=== PATIENT | female | born 1945 | race Hispanic/Latino ===

== ENCOUNTER 2017-12-26 17:05 | Emergency (ER) | payer MEDICARE ==
[~2017-12-26] VITALS: Ht 149.9 cm; Wt 56.2 kg
[~2017-12-26 17:05] MED LIST: ACTOS15 MG PO; ASPIR 8181 MG PO; CELEXA20 MG PO; ENALAPRIL PO; GLIMEPIRIDE2 MG PO; HUMALOG100 UNITS/ SQ; HUMULIN R100 UNIT/2; LEVEMIR100 UNIT/1 SQ; LEVOTHYROXINE25 MCG PO; LOVASTATIN PO; VITAMIN D-32000 UNIT PO
[2017-12-26] MEDS ORDERED: NAPROXEN250 MG PO (17:18)
[2017-12-26] MEDS ORDERED: GLIMEPIRIDE2 MG PO (17:18)
[2017-12-26] MEDS ORDERED: POTASSIUM CHLO20 ME1 PO (17:18)
[2017-12-26] MEDS ORDERED: FERROUS SULFAT325 MG PO (17:18)
[2017-12-26] MEDS ORDERED: MECLIZINE HCL12.5 MG PO (17:18)
[2017-12-26] MEDS ORDERED: DICLOFENAC SODI75 MG PO (17:18)
[2017-12-26] MEDS ORDERED: ASPIRIN 81 MG CHEW TAB PO ONE (17:30)
[2017-12-26 17:36] LABS: BASOPHILS % 0.9 % (0.0-1.0); EOSINOPHILS # (AUTO) 0.1 (0.0-0.4); EOSINOPHILS % 2.7 % (0.0-6.0); HEMATOCRIT 29.9 % (34.2-44.1); HEMOGLOBIN 9.7 g/dL (12.0-16.0); LYMPHOCYTES % 30.9 % (18.0-39.1); MEAN CORPUSCULAR HEMOGLOBIN 28.9 pg (28-32); MEAN CORPUSCULAR HGB CONC 32.4 g/dL (31-35); MONOCYTES # (AUTO) 0.4 (0.2-0.8); MONOCYTES % 10.8 % (4.4-11.3); NEUTROPHILS # (AUTO) 1.8 (2.1-6.9); NEUTROPHILS % 54.4 % (38.7-80.0); PLATELET COUNT 179 x10e3/uL (140-360); RED BLOOD COUNT 3.36 x10e6/uL (3.6-5.1); RED CELL DISTRIBUTION WIDTH 12.7 % (11.7-14.4)
--- NOTE | 2017-12-26 17:40 | Diagnostic Imaging Report ---
PROCEDURE: A single AP view of the chest. COMPARISON: 05/15/14 INDICATIONS: DIABETIC CRISIS FINDINGS: Lines/tubes: None. Lungs: The lungs are well inflated. No focal consolidation. Pleura: There is no pleural effusion or pneumothorax. Heart and mediastinum: The heart and the mediastinum are unremarkable. Bones: No acute bony abnormality. Again seen left humeral head anchor screw. IMPRESSION: 1. No acute cardiopulmonary disease. Dictated by: Rivera Hester M.D. on 12/26/2017 at 17:45 Electronically approved by: Rivera Hester M.D. on 12/26/2017 at 17:45
[2017-12-26 17:57] LABS: ALBUMIN 3.8 g/dL (3.5-5.0); ALBUMIN/GLOBULIN RATIO 1.1 (0.8-2.0); ANION GAP 14.3 mmol/L (8-16); CALCIUM 9.3 mg/dL (8.4-10.2); CREATININE, SERUM 1.16 mg/dL (0.57-1.11); POTASSIUM 4.3 mmol/L (3.5-5.1)
[2017-12-26 18:03] LABS: CREATINE KINASE MB 2.6 ng/mL (0-5.0)
[2017-12-26 18:54] LABS: BILIRUBIN,URINE NEGATIVE (NEGATIVE); CLARITY,URINE CLEAR (CLEAR); COLOR,URINE YELLOW (YELLOW); KETONES,URINE NEGATIVE (NEGATIVE); LEUKOCYTE ESTERASE ,URINE NEGATIVE (NEGATIVE); NITRITE,URINE NEGATIVE (NEGATIVE); PROTEIN,URINE DIPSTICK TRACE (NEGATIVE); URINE UROBILINOGEN 0.2 mg/dL (0.2 - 1)
[2017-12-26 18:58] LABS: EPITHELIAL CELLS,URINE FEW /LPF; MUCUS,URINE RARE (RARE); WBC,URINE (MAN) 0-5 /HPF (0-5)
== END 2017-12-26 20:50 | disposition home or self-care (01) ==
LOC: ER 17:05
DX: E11.649 Type 2 diabetes mellitus with hypoglycemia without coma (principal); I10 Essential (primary) hypertension
CPT/HCPCS: 36415; 71045; 80053; 81001; 82550; 82553; 82948; 83605; 84484; 85025; 93005; 99284

== ENCOUNTER 2018-08-30 14:36 | Inpatient (IN) | payer MEDICAID, MEDICARE ==
[~2018-08-30] VITALS: Ht 149.9 cm; Wt 63.5 kg
[~2018-08-30 14:36] MED LIST changes: +DICLOFENAC SODI75 MG PO; +FERROUS SULFAT325 MG PO; +MECLIZINE HCL12.5 MG PO; +NAPROXEN250 MG PO; +POTASSIUM CHLO20 ME1 PO
--- OUTSIDE RECORDS SUMMARY | 2018-08-30 14:39 | XMS REPORT ---
[facility] Address Unknown Phone Unavailable Care Team Providers Care Portfolio Administrator Name Role Phone Edy PRYOR Unavailable Unavailable Payers Payer Name Policy Type Policy Number Effective Date Expiration Date Problems This patient has no known problems. Allergies, Adverse Reactions, Alerts Allergy Name Allergy Type Status Severity Reaction(s) Onset Date Inactive Date Treating Clinician Comments omeprazole DA Active [place] 2017-09-07 00:00:00 tramadol DA Active [place] 2017-09-07 00:00:00 Medications This patient has no known medications. Results Test Description Test Time Test Comments Text Results Atomic Results Result Comments GLUBED 2018-08-27 16:20:00 GLUBED (test code=GLUBED) 145 mg/dL 74-106 Performed by certified fixing machine operator at [facility] [id number] 13:07:00* Test Item Value Reference Range Comments GLUBED (test code=GLUBED) 141 mg/dL 74-106 Performed by certified fixing machine operator at [facility] [id number] 10:43:00* Test Item Value Reference Range Comments GLUBED (test code=GLUBED) 133 mg/dL 74-106 Performed by certified fixing machine operator at [facility] [id number] 07:53:00* Test Item Value Reference Range Comments GLUBED (test code=GLUBED) 239 mg/dL 74-106 Performed by certified fixing machine operator at [facility] BASIC METABOLIC [id number] 04:55:00* Test Item Value Reference Range Comments SODIUM (test code=NA) 140 mmol/L 136-145 POTASSIUM (test code=K) 4.6 mmol/L 3.5-5.1 CHLORIDE (test code=CL) 104.0 mmol/L 98-107 CARBON DIOXIDE (test code=CO2) 28.0 mmol/L 21-32 ANION GAP (test code=GAP) 12.6 10-20 GLUCOSE (test code=GLU) 328 mg/dL 74-106 BLOOD UREA NITROGEN (test code=BUN) 26 mg/dL 7-18 GLOMERULAR FILTRATION RATE (test code=GFR) 48 mL/min >=60 Estimated GFR by using Modified MDRD formula.Chronic kidney disease is defined as either kidney damageor GFR <60 mL/min/1.73 m2 for >3 months. CREATININE (test code=CREAT) 1.10 mg/dL 0.55-1.02 Note change in reference range due to change in reagent. BUN/CREATININE RATIO (test code=BUN/CREA) 23.6 10-20 CALCIUM (test code=CA) 8.4 mg/dL 8.5-10.1 THYROID PROFILE [id number] 02:21:00* Test Item Value Reference Range Comments T3 UPTAKE (test code=T3UP) 36.0 % 30.0-40.0 T4 (THYROXINE) (test code=T4) 8.6 ug/dL 4.5-13.9 T7 (FREE THYROXINE INDEX) (test code=T7) 3.09 FTI 1.3-5.1 THYROID STIMULATING HORMONE (test code=TSH) 1.350 uIU/mL 0.36-3.74 TSH REFERENCE RANGES: EUTHYROID: 0.35 - 4.3 mIU/mL HYPO : > 5.5 mIU/mL HYPER : < 0.35 mIU/mL [id number] 02:15:00* Test Item Value Reference Range Comments GLYCOSYLATED HEMOGLOBIN (HA1C) (test code=GLYHGB) 10.5 % HbA1 4.8-6.0 ESTIMATED AVERAGE GLUCOSE (test code=EAG) 255 MG/DL [id number] 02:05:00* Test Item Value Reference Range Comments TROPONIN-I (test code=TROPI) 0.139 ng/mL 0-0.045 COMMENTS TO HEALTH PROMOTION EDUCATOR: COLLECT 3 HOURS AFTER PREVIOUS SAMPLECBC W/AUTO [id number] 01:44:00* Test Item Value Reference Range Comments WHITE BLOOD CELL (test code=WBC) 4.2 K/mm3 4.5-12.5 RED BLOOD CELL (test code=RBC) 3.27 mill/mm3 3.7-5.2 HEMOGLOBIN (test code=HGB) 9.1 gram/dL 11.5-15.5 HEMATOCRIT (test code=HCT) 30.0 % 36.0-46.0 MEAN CELL VOLUME (test code=MCV) 91.7 fL 80-98 MEAN CELL HGB (test code=MCH) 27.8 picogram 27.0-33.0 MEAN CELL HGB CONCETRATION (test code=MCHC) 30.3 gram/dL 33.0-36.0 RED CELL DISTRIBUTION WIDTH (test code=RDW) 13.1 % 11.6-16.2 RED CELL DISTRIBUTION WIDTH SD (test code=RDW-SD) 43.7 fL 37.0-51.0 PLATELET COUNT (test code=PLT) 211 K/mm3 150-450 MEAN PLATELET VOLUME (test code=MPV) 10.4 fL 6.7-11.0 NEUTROPHIL % (test code=NT%) 49.6 % 39.0-69.0 IMMATURE GRANULOCYTE % (test code=IG%) 0.2 % 0.0-5.0 LYMPHOCYTE % (test code=LY%) 36.2 % 25.0-55.0 MONOCYTE % (test code=MO%) 12.1 % 0.0-10.0 EOSINOPHIL % (test code=EO%) 1.2 % 0.0-5.0 BASOPHIL % (test code=BA%) 0.7 % 0.0-1.0 NUCLEATED RBC % (test code=NRBC%) 0.0 % 0-0 NEUTROPHIL # (test code=NT#) 2.10 K/mm3 1.8-7.7 IMMATURE GRANULOCYTE # (test code=IG#) 0.01 x10 3/uL 0-0.03 LYMPHOCYTE # (test code=LY#) 1.53 K/mm3 1.0-5.0 MONOCYTE # (test code=MO#) 0.51 K/mm3 0-0.8 EOSINOPHIL # (test code=EO#) 0.05 K/mm3 0.0-0.5 BASOPHIL # (test code=BA#) 0.03 K/mm3 0.0-0.2 NUCLEATED RBC # (test code=NRBC#) 0.00 K/mm3 0.0-0.1 [id number] 23:06:00* Test Item Value Reference Range Comments TROPONIN-I (test code=TROPI) 0.143 ng/mL 0-0.045 RESULT VERIFIED BY REPEAT ANALYSIS COMMENTS TO HEALTH PROMOTION EDUCATOR: COLLECT 3 HOURS AFTER PREVIOUS [id number] 21:03:00* Test Item Value Reference Range Comments GLUBED (test code=GLUBED) 353 mg/dL 74-106 Performed by certified fixing machine operator at [facility] [id number] 16:41:00* Test Item Value Reference Range Comments GLUBED (test code=GLUBED) 126 mg/dL 74-106 Performed by certified fixing machine operator at [facility] B-TYPE NATRIURETIC [id number] 15:54:00* Test Item Value Reference Range Comments B-TYPE NATRIURETIC PEPTIDE (test code=BNP) 90.57 pgram/mL 0-100 BASIC METABOLIC [id number] 15:25:00* Test Item Value Reference Range Comments SODIUM (test code=NA) 139 mmol/L 136-145 POTASSIUM (test code=K) 3.9 mmol/L 3.5-5.1 CHLORIDE (test code=CL) 104.0 mmol/L 98-107 CARBON DIOXIDE (test code=CO2) 29.0 mmol/L 21-32 ANION GAP (test code=GAP) 9.9 10-20 GLUCOSE (test code=GLU) 125 mg/dL 74-106 BLOOD UREA NITROGEN (test code=BUN) 26 mg/dL 7-18 GLOMERULAR FILTRATION RATE (test code=GFR) > 60 mL/min >=60 Estimated GFR by using Modified MDRD formula.Chronic kidney disease is defined as either kidney damageor GFR <60 mL/min/1.73 m2 for >3 months. CREATININE (test code=CREAT) 0.80 mg/dL 0.55-1.02 Note change in reference range due to change in reagent. BUN/CREATININE RATIO (test code=BUN/CREA) 32.5 10-20 CALCIUM (test code=CA) 8.8 mg/dL 8.5-10.1 HEPATIC FUNCTION [id number] 15:25:00* Test Item Value Reference Range Comments TOTAL PROTEIN (test code=PROT) 7.8 gram/dL 6.4-8.2 ALBUMIN (test code=ALB) 3.7 g/dL 3.4-5.0 GLOBULIN (test code=GLOB) 4.1 gram/dL 2.7-4.2 ALBUMIN/GLOBULIN RATIO (test code=A/G) 0.9 0.75-1.50 BILIRUBIN TOTAL (test code=BILT) 0.30 mg/dL 0.0-1.0 BILIRUBIN DIRECT (test code=BILD) 0.07 mg/dL 0.0-0.20 SGOT/AST (test code=AST) 38 IUnit/L 15-37 SGPT/ALT (test code=ALT) 20 IUnit/L 12-78 ALKALINE PHOSPHATASE TOTAL (test code=ALKP) 77 IUnit/L 45-117 Note change in reference range due to change in reagent. [id number] 15:25:00* Test Item Value Reference Range Comments LIPASE (test code=LIP) 102 U/L 73.0-393.0 [id number] 15:25:00* Test Item Value Reference Range Comments MAGNESIUM (test code=MAG) 2.3 mg/dL 1.8-2.4 [id number] 15:25:00* Test Item Value Reference Range Comments TROPONIN-I (test code=TROPI) 0.162 ng/mL 0-0.045 Results called to [id number] by V.LAB.LT 08/26/18 1525Critical results verified and read back by Nurse? Y URINALYSIS [id number] 15:11:00* Test Item Value Reference Range Comments UA COLOR (test code=COLU) STRAW YELLOW UA APPEARANCE (test code=APPU) CLEAR CLEAR UA GLUCOSE DIPSTICK (test code=DGLUU) 150 (1+) mg/dL NEGATIVE UA BILIRUBIN DIPSTICK (test code=BILU) NEGATIVE mg/dL NEGATIVE UA KETONE DIPSTICK (test code=KETU) NEGATIVE mg/dL NEGATIVE UA SPECIFIC GRAVITY (test code=SGU) 1.010 1.001-1.035 UA BLOOD DIPSTICK (test code=ERNIE) Negative mg/dL NEGATIVE UA PH DIPSTICK (test code=SAM) 6.0 5.0-8.0 UA PROTEIN DIPSTICK (test code=PROU) NEGATIVE mg/dL NEGATIVE UA UROBILINIOGEN DIPSTICK (test code=URO) NEGATIVE mg/dL NEGATIVE UA NITRITE DIPSTICK (test code=RAMESH) NEGATIVE NEGATIVE UA LEUKOCYTE ESTERASE W REFLEX (test code=LEUUR) NEGATIVE Zaid/uL NEGATIVE UA WBC (test code=WBCU) 0-5 per HPF 0-5 IN SOME URINARY TRACT INFECTIONS THERE MAY NOT BE ENOUGHWBCs IN THE URINE TO TRIGGER AN AUTOMATIC (REFLEX) URINECULTURE. A SEPERATE ORDER FOR URINE CULTURE IS RECOMMENDEDIF THERE IS STRONG SUPPORT FOR A URINARY TRACT INFECTIONCLINICALLY. UA RBC (test code=RBCU) 0-3 per HPF 0-5 UA EPITHELIAL CELLS (test code=EPIU) Few (2-5/hpf) per HPF Few Urine Source? Clean CatchBASIC METABOLIC [id number] 15:10:00* Test Item Value Reference Range Comments SODIUM (test code=NA) 139 mmol/L 136-145 POTASSIUM (test code=K) 3.9 mmol/L 3.5-5.1 CHLORIDE (test code=CL) 104.0 mmol/L 98-107 CARBON DIOXIDE (test code=CO2) mmol/L 21-32 ANION GAP (test code=GAP) 10-20 GLUCOSE (test code=GLU) mg/dL 74-106 BLOOD UREA NITROGEN (test code=BUN) mg/dL 7-18 GLOMERULAR FILTRATION RATE (test code=GFR) mL/min >=60 CREATININE (test code=CREAT) mg/dL 0.55-1.02 BUN/CREATININE RATIO (test code=BUN/CREA) 10-20 CALCIUM (test code=CA) mg/dL 8.5-10.1 HEPATIC FUNCTION [id number] 15:10:00* Test Item Value Reference Range Comments TOTAL PROTEIN (test code=PROT) gram/dL 6.4-8.2 ALBUMIN (test code=ALB) g/dL 3.4-5.0 GLOBULIN (test code=GLOB) gram/dL 2.7-4.2 ALBUMIN/GLOBULIN RATIO (test code=A/G) 0.75-1.50 BILIRUBIN TOTAL (test code=BILT) mg/dL 0.0-1.0 BILIRUBIN DIRECT (test code=BILD) mg/dL 0.0-0.20 SGOT/AST (test code=AST) IUnit/L 15-37 SGPT/ALT (test code=ALT) IUnit/L 12-78 ALKALINE PHOSPHATASE TOTAL (test code=ALKP) IUnit/L 45-117 [id number] 15:10:00* Test Item Value Reference Range Comments LIPASE (test code=LIP) U/L 73.0-393.0 [id number] 15:10:00* Test Item Value Reference Range Comments MAGNESIUM (test code=MAG) mg/dL 1.8-2.4 [id number] 15:10:00* Test Item Value Reference Range Comments TROPONIN-I (test code=TROPI) ng/mL 0-0.045 CBC W/O [id number] 15:10:00* Test Item Value Reference Range Comments WHITE BLOOD CELL (test code=WBC) 3.4 K/mm3 4.5-12.5 RED BLOOD CELL (test code=RBC) 3.76 mill/mm3 3.7-5.2 HEMOGLOBIN (test code=HGB) 10.2 gram/dL 11.5-15.5 HEMATOCRIT (test code=HCT) 34.5 % 36.0-46.0 MEAN CELL VOLUME (test code=MCV) 91.8 fL 80-98 MEAN CELL HGB (test code=MCH) 27.1 picogram 27.0-33.0 MEAN CELL HGB CONCETRATION (test code=MCHC) 29.6 gram/dL 33.0-36.0 RED CELL DISTRIBUTION WIDTH (test code=RDW) 13.2 % 11.6-16.2 PLATELET COUNT (test code=PLT) 242 K/mm3 150-450 MEAN PLATELET VOLUME (test code=MPV) 10.2 fL 6.7-11.0 URINALYSIS [id number] 14:59:00* Test Item Value Reference Range Comments UA COLOR (test code=COLU) STRAW YELLOW UA APPEARANCE (test code=APPU) CLEAR CLEAR UA GLUCOSE DIPSTICK (test code=DGLUU) 150 (1+) mg/dL NEGATIVE UA BILIRUBIN DIPSTICK (test code=BILU) NEGATIVE mg/dL NEGATIVE UA KETONE DIPSTICK (test code=KETU) NEGATIVE mg/dL NEGATIVE UA SPECIFIC GRAVITY (test code=SGU) 1.010 1.001-1.035 UA BLOOD DIPSTICK (test code=ERNIE) Negative mg/dL NEGATIVE UA PH DIPSTICK (test code=SAM) 6.0 5.0-8.0 UA PROTEIN DIPSTICK (test code=PROU) NEGATIVE mg/dL NEGATIVE UA UROBILINIOGEN DIPSTICK (test code=URO) NEGATIVE mg/dL NEGATIVE UA NITRITE DIPSTICK (test code=RAMESH) NEGATIVE NEGATIVE UA LEUKOCYTE ESTERASE W REFLEX (test code=LEUUR) NEGATIVE Zaid/uL NEGATIVE UA WBC (test code=WBCU) per HPF 0-5 Urine Source? Clean CatchURINALYSIS [id number] 14:58:00* Test Item Value Reference Range Comments UA COLOR (test code=COLU) STRAW YELLOW UA APPEARANCE (test code=APPU) CLEAR CLEAR UA BILIRUBIN DIPSTICK (test code=BILU) NEGATIVE mg/dL NEGATIVE UA KETONE DIPSTICK (test code=KETU) NEGATIVE mg/dL NEGATIVE UA SPECIFIC GRAVITY (test code=SGU) 1.010 1.001-1.035 UA BLOOD DIPSTICK (test code=ERNIE) Negative mg/dL NEGATIVE UA PH DIPSTICK (test code=SAM) 6.0 5.0-8.0 UA PROTEIN DIPSTICK (test code=PROU) NEGATIVE mg/dL NEGATIVE UA UROBILINIOGEN DIPSTICK (test code=URO) NEGATIVE mg/dL NEGATIVE UA NITRITE DIPSTICK (test code=RAMESH) NEGATIVE NEGATIVE UA LEUKOCYTE ESTERASE W REFLEX (test code=LEUUR) NEGATIVE Zaid/uL NEGATIVE UA WBC (test code=WBCU) per HPF 0-5 Urine Source? Clean Catch- XR CHEST 1 [id number] 14:34:00 FAX: Candido Eckert [phone] [place]: [address] St: [facility] FAX: Abe Castañeda MD [phone] Name: CORNELL AVALOS [facility] : 1945 Age/S: 73/F Robin Lopez Unit #: [id number] Loc: [place] [address] Phys: Candido Aguilar MD Acct: [id number] Dis Date: Status: REG ER PHONE #: [phone] Exam Date: 08/26/2018 1400 FAX #: [phone] Reason: WEAKNESS EXAMS: CPT CODE: [id number] XR CHEST 1 V 28377 HISTORY: Weakness. COMPARISON: August 02, 2017. No acute infiltrates, effusion or congestion is noted. Suboptimal inspiration. Dependent changes. Cardiomegaly. I MPRESSION: No acute infiltrates, effusion or congestion. at 1434 Reported and signed by: Issac Ibarra M.D. CC: Candido Aguilar MD; Abe Franks MD Technologist: RT ARY(R) Trnscrd Date/Time/By: 05/2018 (5594) : By: [email or web address] Orig Print D/T: S: 08/26/2018 (2835) PAGE 1 Signed Report CHEST SINGLE (PORTABLE)2017-12-26 17:45:00 [place] [id number] Patient Name: MEGAN AVALOS MR #: [id number] : 1945 Age/Sex: 72/F Req #: [id number] Adm Physician: Ordered by: TOO PRYOR MD Report #: [id number] Location: ER Room/Bed: Procedure: [id number] DX/CHEST SINGLE (PORTABLE ) Exam Date: 12/26/17 Exam Time: 1720 REPORT S TATUS: Signed PROCEDURE: A single AP view of the chest. COMPARISON: 1 07/16/13 INDICATIONS: DIABETIC CRISIS FINDINGS: Lines/tubes: Non e. Lungs: The lungs are well inflated. No focal consolidation. Pleu ra: There is no pleural effusion or pneumothorax. Heart and mediastinum: The heart and the mediastinum are unremarkable. Bones: No acute bony abn ormality. Again seen left humeral head anchor screw. IMPRESSION: 1. No acute cardiopulmonary disease. Dictated by: Rivera Quintanilla M.D. on 12/26/2017 at 17:45 Electronically approved by: Rivera Quintanilla M.D. on 12/26/2017 at 17:45 Dictated By: RIVERA QUINTANILLA MD Electronical ly Signed By: RIVERA QUINTANILLA MD on 12/26/171744 Transcribed By: ANNA on 1744 COPY TO: TOO PRYOR MD
[2018-08-30] MEDS ORDERED: ONDANSETRON HCL INJ 2MG/ML 2ML 2 MG/ML VIAL IV ONE (14:51)
[2018-08-30] MEDS ORDERED: DEXTROSE 10% 1,000 ML IV ONE (15:00)
[2018-08-30 15:44] LABS: BASOPHILS % 0.8 % (0.0-1.0); EOSINOPHILS # (AUTO) 0.1 (0.0-0.4); EOSINOPHILS % 1.6 % (0.0-6.0); HEMATOCRIT 31.2 % (34.2-44.1); HEMOGLOBIN 9.7 g/dL (12.0-16.0); LYMPHOCYTES # (AUTO) 1.2 (1.0-3.2); LYMPHOCYTES % 31.9 % (18.0-39.1); MEAN CORPUSCULAR HEMOGLOBIN 28.2 pg (28-32); MEAN CORPUSCULAR HGB CONC 31.1 g/dL (31-35); MEAN CORPUSCULAR VOLUME 90.7 fL (81-99); MONOCYTES # (AUTO) 0.5 (0.2-0.8); MONOCYTES % 14.6 % (4.4-11.3); NEUTROPHILS # (AUTO) 1.9 (2.1-6.9); NEUTROPHILS % 50.8 % (38.7-80.0); PLATELET COUNT 239 x10e3/uL (140-360); RED BLOOD COUNT 3.44 x10e6/uL (3.6-5.1); RED CELL DISTRIBUTION WIDTH 13.2 % (11.7-14.4)
--- NOTE | 2018-08-30 15:48 | NUR ---
PT FAMILY VOICING CONCERNS OF PT LETHARGY/UNRESPONSIVENESS, GLUCOSE CHECKED- CURRENTLY AT 23. INITIATING DEXTROSE 10 @75CC/HR AT THIS TIME. V/S/S, BREATHING EVEN/UNLABORED.
[2018-08-30 15:53] LABS: INR 0.88; PARTIAL THROMBOPLASTIN TIME 29.5 seconds (23.8-35.5); PROTHROMBIN TIME 12.4 seconds (11.9-14.5)
[2018-08-30 16:01] LABS: ALBUMIN 3.3 g/dL (3.5-5.0); ANION GAP 12.2 mmol/L (8-16); CALCIUM 9.6 mg/dL (8.4-10.2); CREATININE, SERUM 1.52 mg/dL (0.57-1.11); MAGNESIUM 2.3 MG/DL (1.3-2.1); POTASSIUM 4.2 mmol/L (3.5-5.1)
[2018-08-30 16:09] LABS: CREATINE KINASE MB 2.5 ng/mL (0-5.0)
[2018-08-30 16:13] LABS: B-TYPE NATRIURETIC PEPTIDE2 50.6 pg/mL (0-100)
--- NOTE | 2018-08-30 16:40 | Diagnostic Imaging Report ---
Exam: Pelvis, single frontal view History: Fall, hypoglycemia Comparison: None. Findings: The bones are diffusely osteopenic. No acute, displaced fracture or dislocation. Femoral heads project appropriately over the acetabula. Dystrophic calcifications adjacent to the right greater trochanter. Atherosclerotic vascular calcifications. Degenerative disc changes of the lumbar spine partially visualized. Impression: Diffuse osteopenia without acute osseous abnormality. Signed by: Dr. Ronnie Burciaga M.D. on 08/30/2018 4:37 PM
--- NOTE | 2018-08-30 16:42 | Diagnostic Imaging Report ---
Examination: Single AP view of the chest. COMPARISON: 12/26/2017 INDICATION: Fall, hypoglycemia DISCUSSION: Lung volumes are low with vascular crowding or subsegmental atelectasis in the bases. No gross consolidation, pleural effusion, or pneumothorax. Atherosclerotic calcification of the thoracic aorta. Normal heart size for portable, AP technique and when accounting for degree of inspiratory effort. No acute osseous abnormality. IMPRESSION: Low lung volumes without acute cardiopulmonary abnormality. Signed by: Dr. Ronnie Burciaga M.D. on 08/30/2018 4:39 PM
[2018-08-30] MEDS ORDERED: DEXTROSE 50% SYRINGE 50 ML IV ONE ×2 (16:43→17:15)
[2018-08-30] MEDS ORDERED: DEXTROSE 50% SYRINGE 50 ML IV STA (17:01)
--- NOTE | 2018-08-30 17:17 | Diagnostic Imaging Report ---
History: Fall, pain Comparison studies:None Technique: Axial images were obtained from the brain, face and cervical spine. Coronal and sagittal reconstructions obtained from the axial data. Intravenous contrast: None Dose modulation, iterative reconstruction, and/or weight based adjustment of the mA/kV was utilized to reduce the radiation dose to as low as reasonably achievable. Findings: Head CT: Scalp/skull: No abnormalities. No fractures, blastic or lytic lesions. Extra-axial spaces: No masses. No fluid collections. Brain sulci: Appropriate for age. Ventricles: Normal in size and configuration. No hydrocephalus. Parenchyma: Mineralization of the bilateral basal ganglia. Few hypodensities of the periventricular and deep white matter, most commonly seen with mild chronic microvascular ischemic changes. No masses, hemorrhage, acute or chronic cortical vascular insults. Sellar/suprasellar region: No abnormalities Craniocervical junction: Patent foramen magnum. No Chiari one malformation. Atherosclerotic calcifications of the carotid siphons Maxillofacial CT: Soft tissues: No abnormalities.. Bones: No fractures or bony abnormalities. . Orbits: No acute abnormalities. Bilateral cataract surgery changes.. Paranasal sinuses: Clear. Missing dentition, periapical lucencies and dental cavities, which can be better assessed clinically. Cervical spine CT: Fractures: None. Soft tissues: No gross abnormalities. Atlantoaxial articulation: Intact. Alignment: Normal lordosis. No scoliosis. Cervicomedullary junction: No abnormalities. The foramen magnum is patent. Vertebrae: No infection or neoplasm. Degenerative changes: At C5-6, decreased intervertebral space. Bilateral facet process hypertrophy and facet hypertrophy results in no significant canal stenosis and mild bilateral foraminal narrowing. At C6-C7, decreased intervertebral space. Bilateral uncinate process hypertrophy results in no significant canal stenosis and mild bilateral foraminal narrowing. Incidental findings: Atherosclerotic calcifications of the carotid bulbs. Impression: Head CT: 1. No acute abnormality. Facial CT: 1. No acute facial abnormality. Cervical spine CT: 1. No acute cervical abnormalities. 2. Cannot exclude ligament, spinal cord and or vascular abnormalities on the basis of this examination. Signed by: DR Mustapha Chandra M.D. on 08/30/2018 5:14 PM
[2018-08-30 17:42] LABS: BILIRUBIN,URINE NEGATIVE (NEGATIVE); CLARITY,URINE CLEAR (CLEAR); COLOR,URINE YELLOW (YELLOW); KETONES,URINE NEGATIVE (NEGATIVE); LEUKOCYTE ESTERASE ,URINE NEGATIVE (NEGATIVE); NITRITE,URINE NEGATIVE (NEGATIVE); PROTEIN,URINE DIPSTICK NEGATIVE (NEGATIVE); URINE UROBILINOGEN 0.2 mg/dL (0.2 - 1)
[2018-08-30] MEDS ORDERED: ONDANSETRON HCL INJ 2MG/ML 2ML 2 MG/ML VIAL IV PRN (17:45)
[2018-08-30] MEDS ORDERED: DEXTROSE 50% SYRINGE 50 ML IV PRN (17:45)
[2018-08-30 17:49] LABS: AMORPHOUS SEDIMENT,URINE MODERATE (FEW); BACTERIA,URINE FEW /HPF; EPITHELIAL CELLS,URINE FEW /LPF; RBC,URINE 0-5 /HPF (0-5)
--- NOTE | 2018-08-30 19:00 | NUR ---
REPORT GIVEN TO KRISTEL GARDNER MANAGER OF TRAINING NURSE.
[2018-08-30] MEDS: OCTREOTIDE ACETATE 0.05 MG/ML AMP SQ SCH (19:45)
[2018-08-30 19:47] VITALS: BP 140/71
[2018-08-30] MEDS ORDERED: LEVEMIR100 UNIT/1 SQ (20:03)
[2018-08-30] MEDS ORDERED: FERROUS SULFAT325 MG PO (20:03)
[2018-08-30 21:05] VITALS: BP 176/53
--- NOTE | 2018-08-30 21:09 | NUR ---
PATIENT RECEIVED FROM EMERGENCY DEPARTMENT PER STRETCHER AT 2024. SHE'S ALERT AND ORIENTED X3, NO RESPIRATORY DISTRESS OBSERVED AND SHE C/O MILD PAIN TO THE RIGHT SHOULDER. SKIN INTEGRITY INTACT WITH HYPOPIGMENTS OBSERVED TO THE SKIN AND THE LOWER BACK. IV INTACT TO THE LEFT AC AND RIGHT WRIST, PATIENT ASSISTED TO THE RESTROOM AND SHE'S NOW RESTING COMFORTABLY IN BED WITH HER SON AT THE BEDSIDE. BLOOD SUGAR ASSESSED WITH READING OF 168, INSULIN ADMINISTERED ORDERED AND SNACKS GIVEN TO THE PATIENT. CALL LIGHT WITHIN EASY REACH, INSTRUCTED TO CALL FOR ASSISTANCE NEEDED.
[2018-08-30] MEDS: INSULIN LISPRO 100 UNIT/1 ML 3ML VIAL SQ SCH (21:16)
--- NOTE | 2018-08-30 23:36 | NUR ---
PATIENT IS SOUNDLY ASLEEP WITHOUT DISTRESS, BED ALARM ON AND CALL LIGHT WITHIN EASY REACH.
[2018-08-31] VITALS (7 sets, daily range): BP systolic 137–153; BP diastolic 49–62
[2018-08-31] MEDS: OCTREOTIDE ACETATE 0.05 MG/ML AMP SQ SCH ×2 (00:43→06:40)
--- NOTE | 2018-08-31 04:17 | NUR ---
PATIENT ASSISTED TO THE RESTROOM, SHE'S NOW BACK IN BED WITHOUT DISTRESS. BED ALARM ON, CALL LIGHT WITHOUT EASY REACH.
[2018-08-31 05:35] LABS: BASOPHILS % 1.1 % (0.0-1.0); EOSINOPHILS # (AUTO) 0.1 (0.0-0.4); EOSINOPHILS % 1.8 % (0.0-6.0); HEMATOCRIT 28.6 % (34.2-44.1); HEMOGLOBIN 8.9 g/dL (12.0-16.0); LYMPHOCYTES # (AUTO) 1.1 (1.0-3.2); LYMPHOCYTES % 39.5 % (18.0-39.1); MEAN CORPUSCULAR HEMOGLOBIN 27.7 pg (28-32); MEAN CORPUSCULAR HGB CONC 31.1 g/dL (31-35); MEAN CORPUSCULAR VOLUME 89.1 fL (81-99); MONOCYTES # (AUTO) 0.4 (0.2-0.8); MONOCYTES % 14.4 % (4.4-11.3); NEUTROPHILS # (AUTO) 1.2 (2.1-6.9); NEUTROPHILS % 43.2 % (38.7-80.0); PLATELET COUNT 218 x10e3/uL (140-360); RED BLOOD COUNT 3.21 x10e6/uL (3.6-5.1); RED CELL DISTRIBUTION WIDTH 13.1 % (11.7-14.4)
[2018-08-31 05:53] LABS: ALBUMIN 2.8 g/dL (3.5-5.0); ALBUMIN/GLOBULIN RATIO 0.9 (0.8-2.0); ANION GAP 11.8 mmol/L (8-16); CALCIUM 8.6 mg/dL (8.4-10.2); CREATININE, SERUM 1.05 mg/dL (0.57-1.11); POTASSIUM 4.8 mmol/L (3.5-5.1)
[2018-08-31 07:09] LABS: CREATINE KINASE MB 5.5 ng/mL (0-5.0)
[2018-08-31] MEDS: INSULIN LISPRO 100 UNIT/1 ML 3ML VIAL SQ SCH ×6 (08:10→21:29)
--- NOTE | 2018-08-31 09:02 | NUR ---
PT IS FROM HOME, IS NAOMY [phone], PT JUST SEEN AT [facility] AND RELEASED FOR SAME ISSUE, HAD STRESS TEST AND HAS HAD LOW BLOOD SUGARS.
[2018-08-31] MEDS ORDERED: MECLIZINE HCL 12.5 MG TAB PO PRN (10:45)
[2018-08-31 11:31] LABS: THYROID STIMULATING HORMONE 0.809 uIU/mL (0.350-4.940)
[2018-08-31 11:49] LABS: FOLATE 16.6 ng/mL (7.0-15.4)
[2018-08-31] MEDS ORDERED: INSULIN LISPRO 100 UNIT/1 ML 3ML VIAL SQ SCH (12:00)
[2018-08-31] MEDS ORDERED: SODIUM CHLORIDE 0.9% 50ML 50 ML ONE (13:19)
[2018-08-31] MEDS ORDERED: IOPAMIDOL 370 MG/ML 200 ML INFUS..BTL INJ ONE (13:20)
--- NOTE | 2018-08-31 14:10 | Diagnostic Imaging Report ---
EXAM: CT Abdomen and Pelvis WITH contrast INDICATION: Anemia. COMPARISON: None. TECHNIQUE: Abdomen and pelvis were scanned utilizing a multidetector helical scanner from the lung base to the pubic symphysis after administration of IV contrast. Coronal and sagittal reformations were obtained. Routine protocol was performed. Scan was performed when during portal venous phase. IV CONTRAST: 100 cc is of view 370 ORAL CONTRAST: Water RADIATION DOSE: Total DLP: 450.76 mGy*cm Estimated effective dose: (DLP x 0.015 x size factor) mSv COMPLICATIONS: None FINDINGS: LINES and TUBES: None. LOWER THORAX: Bibasilar dependent atelectasis. HEPATOBILIARY: No focal hepatic lesions. No biliary ductal dilation. GALLBLADDER: No radio-opaque stones or sludge. No wall thickening. SPLEEN: No splenomegaly. PANCREAS: No focal masses or ductal dilatation. ADRENALS: No adrenal nodules KIDNEYS/URETERS: Kidneys enhance symmetrically. No hydronephrosis. No cystic or solid mass lesions. No stones. GI TRACT: No abnormal distention, wall thickening, or evidence of bowel obstruction. Appendix is noted identified, however, no evidence of appendicitis. PELVIC ORGANS/BLADDER: Unremarkable. LYMPH NODES: No lymphadenopathy. VESSELS: There is mild atherosclerotic disease in the aorta and major arterial branches. PERITONEUM / RETROPERITONEUM: No free air or fluid. BONES: There are degenerative changes in the lumbar spine. Mild anterior wedge deformity of L1. Mild retrolisthesis of L1 on L2, and L2 on L3. SOFT TISSUES: Unremarkable. IMPRESSION: 1. No acute abdominopelvic abnormality. 2. Mild compression deformity of L1 of uncertain age. Signed by: Dr. Dale Stock M.D. on 08/31/2018 2:07 PM
--- NOTE | 2018-08-31 16:15 | NUR ---
patients blood glucose 38. D50 given per PRN order, patient awake and alert with no s/s of hypoglycemia, will continue to monitor
--- NOTE | 2018-08-31 17:11 | History and Physical ---
CHIEF COMPLAINT: Low blood sugars, status post fall, left eye bruises. HISTORY OF PRESENT ILLNESS: This is a 73 years old female recently with adjusted insulin. The patient has diabetes type 2, uncontrolled. Insulin was adjusted, unclear the amount of insulin was taken. Apparently, the patient's blood sugar was elevated yesterday. In the morning, she gave herself insulin and then subsequently eat breakfast. She went to see Dr. Abe Franks, came home and apparently her blood sugar on the fingerstick on the glucometer was over 100 per patient and her son. Subsequently, she gave was another injection of approximately 12 units of insulin. Later on the patient's son found the patient down with very low blood sugar less than 10 apparently and EMS was notified. The patient did receive glucose treatment. She came to the emergency room and in the emergency room, blood sugars noted here on the records at 1500 hours was 114 that was on August 30. After treatment, it was 157. Next, the blood sugar was 184, 168 and this morning at 07:44 a.m., August 31, 2018 was 378. The patient's glycohemoglobin A1c per PCP Dr. Abe Franks was over 11. The patient's glycohemoglobin A1c here is still pending. The patient's blood sugar this morning on chemistry panel was 360. That was taken at 0400 hours. The patient had urine test which showed 2+ glucose. The patient is otherwise stable. She is anemic and she has taken iron supplement at home. PAST MEDICAL HISTORY: Diabetes, uncontrolled type 2, on insulin treatment. Question whether the patient was taken oral medication, but is currently not on her list. Reflux, hypertension, chronic anemia, hypothyroidism, dyslipidemia, cataracts, osteoarthritis, carpal tunnel syndrome. PAST SURGICAL HISTORY: Tubal ligation, , rotator cuff repair, cataract surgery, bilateral carpal surgery, left arm lump removed, benign. SOCIAL HISTORY: The patient lives with her son. She does not smoke or use alcohol no recreational drugs. ALLERGIES: TO OMEPRAZOLE AND TRAMADOL. HOME MEDICATIONS: 1. Aspirin. 2. Celexa. Ferrous sulfate. 1. Levemir insulin 25 units at bedtime. 2. Humalog 15 units before meals. 3. Levothyroxine 25 mcg daily. 4. Meclizine p.r.n. 5. Enalapril 20 mg daily. 6. Lovastatin 20 mg daily. PHYSICAL EXAMINATION: VITAL SIGNS: Temperature is 97, blood pressure 139/49, pulse rate 84, respirations 16. GENERAL: The patient is not in acute distress. She had bruises to the left eye, status post fall. HEENT: No head or scalp laceration. No bony structure fractures. NECK: Supple. PULMONARY: Clear. CARDIOVASCULAR: Regular rate and rhythm. ABDOMEN: Soft. EXTREMITIES: No cyanosis or edema. NEUROLOGIC: No gross focal deficit. LABORATORY DATA: Sodium is 134, potassium 4.8, chloride 198, bicarb 29, BUN 18, creatinine 1.05, glucose is 360. WBC 2.7, hemoglobin 8.9, hematocrit 28.6, and platelets 218. IMPRESSION: 1. Status post syncopal episode with left eye contusion, facial bruises secondary to labile blood sugar and hypoglycemic episode associated with uncontrolled diabetes on insulin therapy. 2. Multiple chronic baseline problems. PLAN: Consultation with Dr. Stas Hudson. Continue with insulin treatment, insulin sliding scale coverage. Cut back to 6 units before meals and 25 units at bedtime of Levemir. The before meal is lispro or Humalog insulin. We will continue to monitor this patient closely glycohemoglobin A1c, thyroid function test, iron profile, B12, folic acid, CT abdomen with contrast and we will follow up on the results. MD ELÍAS Valverde/SERA /[id number]
--- NOTE | 2018-08-31 19:53 | NUR ---
PATIENT RESTING IN BED, NO ACUTE DISTRESS OBSERVED AND SHE DENIES PAIN. CALL LIGHT WITHIN EASY REACH, HER SON IS AT THE BEDSIDE.
--- NOTE | 2018-08-31 20:56 | Consultation ---
DATE OF CONSULTATION: 08/31/2018 Endocrine Consultation Thank you very much for referring this patient. HISTORY OF PRESENT ILLNESS: This is a 73-year-old lady, who was referred to me for evaluation of uncontrolled diabetes mellitus. The patient reportedly is a known diabetic for almost 5 years and takes combination of insulin Lantus and Humalog. Recently, her Humalog dose was increased and then adjusted, but the patient came to the hospital with history of altered mental status and hypoglycemic episode. She also fell down and sustained some bruises on the left eye. She also has history of hypothyroidism and hypertension. During the hospital, her blood sugars have been between 378 and 190. Her hemoglobin A1c is 9.6. She is also taking levothyroxine 0.15 mg once daily. PHYSICAL EXAMINATION: GENERAL: Today, the patient is alert, awake, little bit apprehensive. VITAL SIGNS: Her heart rate is around 68, blood pressure is 130/80 mmHg. HEENT: Essentially unremarkable. Thyroid is palpable. Clinically, she looks near euthyroid. CHEST: Bilateral vesicular breathing. She has mild bronchospasm. CARDIAC: First and second heart sounds. There is no third or fourth heart sound. EXTREMITIES: The patient has evidence of diabetic sensory neuropathy in both lower extremities. CLINICAL IMPRESSION: Hypoglycemia, multifactorial, probably related to insulin dose adjustment, diabetes mellitus type 2 with complications, hypertension, and hypothyroidism. PLAN: The plan at this time is to adjust the insulin dose, monitor her blood sugars closely. We will also do thyroid profile. Thanks again for referring this patient. I will be following this patient with you. MD BRYAN Escobar/SERA /[id number] YARA
[2018-08-31] MEDS ORDERED: NON-FORMULARY MEDICATION (Insulin Detemir (Levemir) 25 UNITS) SQ SCH (21:00)
[2018-08-31] MEDS ORDERED: NON-FORMULARY MEDICATION (Insulin Detemir (Levemir) 20 UNITS) SQ SCH (21:00)
[2018-08-31] MEDS ORDERED: INSULIN GLARGINE 100 UNITS/ML VIAL SQ SCH (21:00)
[2018-08-31] MEDS: SIMVASTATIN 20 MG TAB PO SCH (21:28)
[2018-08-31] MEDS: INSULIN GLARGINE 100 UNITS/ML VIAL SQ SCH (21:29)
--- NOTE | 2018-08-31 22:30 | NUR ---
DIABETIC SNACKS GIVEN, NO DISTRESS OBSERVED. CALL LIGHT WITHIN EASY REACH, PATIENT INSTRUCTED TO CALL FOR ASSISTANCE NEEDED.
[2018-09-01] VITALS (8 sets, daily range): BP systolic 128–155; BP diastolic 40–56
--- NOTE | 2018-09-01 01:15 | NUR ---
PATIENT IS ASLEEP, SHE'S EASY TO AROUSE. NO DISTRESS OBSERVED, CALL LIGHT IN EASY REACH AND BED ALARM ON.
--- NOTE | 2018-09-01 04:27 | NUR ---
PATIENT ASSISTED TO THE RESTROOM, SHE WAS INSTRUCTED TO CALL FOR ASSISTANCE UPON COMPLETION SO THAT SHE WILL BE ASSISTED BACK TO THE BED.
[2018-09-01] MEDS: LEVOTHYROXINE SODIUM 75 MCG TAB PO SCH (06:16)
[2018-09-01 06:28] LABS: BASOPHILS % 1.1 % (0.0-1.0); EOSINOPHILS # (AUTO) 0.1 (0.0-0.4); EOSINOPHILS % 3.8 % (0.0-6.0); HEMATOCRIT 30.7 % (34.2-44.1); HEMOGLOBIN 9.4 g/dL (12.0-16.0); LYMPHOCYTES # (AUTO) 1.7 (1.0-3.2); MEAN CORPUSCULAR HEMOGLOBIN 27.9 pg (28-32); MEAN CORPUSCULAR HGB CONC 30.6 g/dL (31-35); MEAN CORPUSCULAR VOLUME 91.1 fL (81-99); MONOCYTES # (AUTO) 0.5 (0.2-0.8); MONOCYTES % 14.4 % (4.4-11.3); NEUTROPHILS # (AUTO) 1.3 (2.1-6.9); NEUTROPHILS % 35.4 % (38.7-80.0); PLATELET COUNT 238 x10e3/uL (140-360); RED BLOOD COUNT 3.37 x10e6/uL (3.6-5.1); RED CELL DISTRIBUTION WIDTH 13.2 % (11.7-14.4)
[2018-09-01] MEDS: INSULIN LISPRO 100 UNIT/1 ML 3ML VIAL SQ SCH ×6 (07:24→23:20)
[2018-09-01] MEDS: CITALOPRAM HYDROBROMIDE 20 MG TAB PO SCH (08:04)
[2018-09-01 08:09] LABS: BLOOD UREA NITROGEN 20 mg/dL (7-26); BUN/CREATININE RATIO 23 (6-25); CALCIUM 8.9 mg/dL (8.4-10.2); CARBON DIOXIDE 28 mmol/L (22-29); CHLORIDE 105 mmol/L (98-107); CREATININE, SERUM 0.86 mg/dL (0.57-1.11); EST GLOMERULAR FILTRATION RATE > 60 ML/MIN (60-); GLUCOSE 105 mg/dL (74-118); SODIUM 140 mmol/L (136-145)
[2018-09-01] MEDS: CYANOCOBALAMIN INJ 1,000 MCG/ML VIAL IM SCH (12:40)
[2018-09-01] MEDS ORDERED: INSULIN LISPRO 100 UNIT/1 ML 3ML VIAL SQ NR (14:15)
--- NOTE | 2018-09-01 15:07 | NUR ---
THIS MORNING MET WITH BREANA GUEVARA, PT NURSE. SHE STATED PT DOES NOT NEED A SELF PAY PACKET. THEY ARE WANTING ASSISTANCE WITH GETTING DIABETIC SUPPLY. CONSULTED [employer] TO ASSIST W/ ADA AND POSS DIABETIC RESOURCES.
--- NOTE | 2018-09-01 17:42 | NUR ---
only three units given per patient request at dinner.
--- NOTE | 2018-09-01 20:46 | NUR ---
Received patient from day nurse, patient is alert and oriented x 3, introduced self to patient, safety and fall precautions maintained as per hospital protocol: bed in lowest position and locked, needed items beside bed and call ryan placed close to patient, patient instructed to use it to call nurses for help, verbalized understanding. patient is currently stable, will continue to monitor.
[2018-09-01] MEDS: SIMVASTATIN 20 MG TAB PO SCH (21:57)
[2018-09-01] MEDS: INSULIN GLARGINE 100 UNITS/ML VIAL SQ SCH (22:00)
[2018-09-02 00:06] VITALS: BP 135/43
[2018-09-02 04:52] VITALS: BP 135/48
[2018-09-02] MEDS: LEVOTHYROXINE SODIUM 75 MCG TAB PO SCH (05:02)
[2018-09-02] MEDS: INSULIN LISPRO 100 UNIT/1 ML 3ML VIAL SQ SCH ×3 (07:30→11:30)
[2018-09-02 07:38] VITALS: BP 141/53
[2018-09-02 08:28] VITALS: BP 141/53
[2018-09-02] MEDS ORDERED: LEVEMIR100 UNIT/1 SQ (09:07)
[2018-09-02] MEDS ORDERED: HUMALOG100 UNIT/1 SQ (09:09)
[2018-09-02] MEDS: CITALOPRAM HYDROBROMIDE 20 MG TAB PO SCH (10:09)
[2018-09-02] MEDS: CYANOCOBALAMIN INJ 1,000 MCG/ML VIAL IM SCH (10:09)
[2018-09-02] MEDS ORDERED: ONDANSETRON HCL 4 MG ORAL DISINTEGRATING TAB PO PRN (12:00)
[2018-09-02 12:15] VITALS: BP 156/56
--- NOTE | 2018-09-02 12:30 | NUR ---
Called DR. Keller's cell left a message to call me back patient's blood pressure 156/56 prior to discharge, wating for call back.
[2018-09-02 13:48] VITALS: BP 150/70
--- NOTE | 2018-09-02 15:29 | NUR ---
patient discharge home, verbalized understanding of d/c instructions, escorted patient in wheel chair to front of hospital to meet her daughter. IV access discontinued prior to discharge.
--- NOTE | 2018-09-02 16:52 | Discharge Summary ---
PRIMARY CARE PHYSICIAN: Dr. Abe Franks. CONSULTANTS: Dr. Stas Hudson. FINAL DIAGNOSES: 1. Diabetes type 2, on insulin therapy, status post hypoglycemic episode associated with a fall and left outer eye facial contusion, stable. 2. Glycohemoglobin A1c of 9.6. 3. Pernicious anemia. Fecal for occult blood negative. SUMMARY: The patient is 73-year-old female with low blood sugar level. Apparently, there was a mistakable reading on the glucometer of greater than 800 something blood sugar. The patient's glucometer will be changed as an outpatient, we will talk with Dr. Abe Franks. Here the patient's hemoglobin and hematocrit of 9.4 and 30.7. Her B12 level is 158. The patient is otherwise stable. Blood sugar has been trending down in the 100-115. The patient is otherwise stable. Renal function was normal. BUN and creatinine of [address] Imaging, CT scan of abdomen and pelvis, face CT, brain CT, cervical spine CT, chest x-ray and pelvic x-ray otherwise are all unremarkable. The patient is otherwise stable. She will go home today. Adjustment of her insulin is made. The patient will take Levemir 20 units at night and Humalog 6 units before meals. The patient is otherwise stable. Instruction was given to the patient as well. She will follow up with Dr. Stas Hudson as an outpatient. The patient is stable, discharged home today. MD ELÍAS Valverde/SERA /[id number]
--- NOTE | 2018-09-02 16:56 | NUR ---
YOAN RECEIVED REQUEST FROM BEDSIDE NURSE TO VISIT PT REGARDING COST OF HER INSULIN AT HOME. YOAN MET W THE PT AND FAMILY AT THE BEDSIDE. P PT STATES SHE WAS TOLD HER HUMALOG AND LEVEMIR INSULIN WOULD COST $269 AND $279. PT STATES SHE GOES TO [facility] [address] [facility] [place]. STATES SHE HAD ADDL LEVEMIR SO SHE DIDN'T HAVE TO PURCHASE IT, BUT HER PCP CHANGED HER HUMALOG TO NOVOLOG DUE TO THE COST. PT ALSO HAS [facility] AND WAS LISTED A MEDICAID HMO. CM MADE COPY OF INSURANCE CARD. NOTED PT HAD PART D PLAN W [facility] ALSO. YOAN CALLED [facility] @ [phone] AND SPOKE W THE PHARMACIST. SHE STATES THE PT HAS A $200 DEDUCTIBLE TO MEET AND BOTH INSULINS WILL ONLY COST THE $30 COPAY PER [facility] PLAN. PT HAD ALREADY DC'D. YOAN CALLED HOME # @ [phone]. NO ANSWER; NO VM.
== END 2018-09-02 13:50 | disposition home or self-care (01) | DRG 639 ==
LOC: ER 14:36 → ERHOLD 18:09 → IMCU 20:53
PROVIDERS: ADMIT Internal Medicine; ATTEND Internal Medicine
DX: E11.649 Type 2 diabetes mellitus with hypoglycemia without coma (principal); Z79.4 Long term (current) use of insulin; S00.83XA Contusion of other part of head, initial encounter; W19.XXXA Unspecified fall, initial encounter; D51.0 Vitamin B12 deficiency anemia due to intrinsic factor deficiency; E03.9 Hypothyroidism, unspecified; E78.5 Hyperlipidemia, unspecified
CPT/HCPCS: 36415; 70450; 70486; 71045; 72125; 72170; 74177; 80048; 80053; 81001; 82270; 82550; 82553; 82607; 82746; 82948; 83036; 83540; 83605; 83690; 83735; 83880; 84439; 84443; 84466; 84484; 85025; 85610; 85730; 87086; 93005; 96372; 99284; J2354; J2405; J3420; J7799; Q9967

== ENCOUNTER 2021-08-02 19:12 | Inpatient (IN) | payer MEDICARE, OTHER ==
[~2021-08-02] VITALS: Ht 149.9 cm; Wt 63.5 kg
[~2021-08-02 19:12] MED LIST changes: +HUMALOG100 UNIT/1 SQ
[2021-08-02] MEDS ORDERED: SODIUM CHLORIDE 0.9% 1000ML 1,000 ML IV ONE (19:30)
[2021-08-02 20:07] LABS: BASOPHILS % 0.2 % (0.0-1.0); HEMATOCRIT 35.3 % (34.2-44.1); HEMOGLOBIN 11.7 g/dL (12.0-16.0); LYMPHOCYTES # (AUTO) 0.6 (1.0-3.2); LYMPHOCYTES % 5.1 % (18.0-39.1); MEAN CORPUSCULAR HGB CONC 33.1 g/dL (31-35); MEAN CORPUSCULAR VOLUME 87.4 fL (81-99); MONOCYTES # (AUTO) 0.6 (0.2-0.8); NEUTROPHILS # (AUTO) 11.1 (2.1-6.9); NEUTROPHILS % 89.5 % (38.7-80.0); PLATELET COUNT 323 x10e3/uL (140-360); RED BLOOD COUNT 4.04 x10e6/uL (3.6-5.1); RED CELL DISTRIBUTION WIDTH 12.6 % (11.7-14.4)
[2021-08-02 20:13] LABS: CLARITY,URINE CLEAR (CLEAR); COLOR,URINE YELLOW (YELLOW); KETONES,URINE NEGATIVE (NEGATIVE); LEUKOCYTE ESTERASE ,URINE NEGATIVE (NEGATIVE); NITRITE,URINE NEGATIVE (NEGATIVE); PROTEIN,URINE DIPSTICK NEGATIVE (NEGATIVE); URINE UROBILINOGEN 0.2 mg/dL (0.2 - 1)
[2021-08-02 20:26] LABS: ALBUMIN 3.1 g/dL (3.5-5.0); ALBUMIN/GLOBULIN RATIO 0.8 (0.8-2.0); CALCIUM 9.4 mg/dL (8.4-10.2); CREATININE, SERUM 0.76 mg/dL (0.57-1.11)
[2021-08-02] MEDS: SODIUM CHLORIDE 0.9% 1000ML 1,000 ML IV SCH (21:15)
[2021-08-02] MEDS ORDERED: SODIUM CHLORIDE 0.9% 100 ML ONE (21:25)
[2021-08-02] MEDS ORDERED: IOPAMIDOL 370 MG/ML 200 ML INFUS..BTL INJ ONE (21:25)
[2021-08-02] MEDS: PIPERACILLIN/TAZOBACTAM 3.375 GM in SODIUM CHLORIDE 0.9% 50ML 50 ML IV SCH (22:00)
[2021-08-02] MEDS ORDERED: DEXTROSE 5% 1,000 ML IV SCH (22:30)
[2021-08-02] MEDS ORDERED: GLUCAGON FOR INJ 1 MG VIAL IV ONE (22:30)
[2021-08-02] MEDS ORDERED: DEXTROSE 50% SYRINGE 50 ML IV ONE (22:36)
[2021-08-02] MEDS ORDERED: GLUCAGON FOR INJ 1 MG VIAL ONE (22:36)
[2021-08-02] MEDS: DEXTROSE 50% SYRINGE 50 ML IV PRN (23:07)
[2021-08-03] MEDS: PIPERACILLIN/TAZOBACTAM 3.375 GM in SODIUM CHLORIDE 0.9% 50ML 50 ML IV SCH ×4 (04:08→21:16)
[2021-08-03] MEDS ORDERED: DEXTROSE 10% 1,000 ML IV STA (05:12)
[2021-08-03] MEDS: DEXTROSE 50% SYRINGE 50 ML IV PRN (05:15)
[2021-08-03] MEDS: SODIUM CHLORIDE 0.9% 1000ML 1,000 ML IV SCH ×2 (05:16→05:17)
[2021-08-03 05:44] LABS: BASOPHILS % 0.5 % (0.0-1.0); EOSINOPHILS % 0.3 % (0.0-6.0); HEMATOCRIT 30.8 % (34.2-44.1); HEMOGLOBIN 9.8 g/dL (12.0-16.0); LYMPHOCYTES # (AUTO) 1.5 (1.0-3.2); LYMPHOCYTES % 20.3 % (18.0-39.1); MEAN CORPUSCULAR HEMOGLOBIN 28.2 pg (28-32); MEAN CORPUSCULAR HGB CONC 31.8 g/dL (31-35); MEAN CORPUSCULAR VOLUME 88.8 fL (81-99); MONOCYTES # (AUTO) 0.7 (0.2-0.8); MONOCYTES % 9.3 % (4.4-11.3); NEUTROPHILS # (AUTO) 5.1 (2.1-6.9); NEUTROPHILS % 69.2 % (38.7-80.0); PLATELET COUNT 210 x10e3/uL (140-360); RED BLOOD COUNT 3.47 x10e6/uL (3.6-5.1); RED CELL DISTRIBUTION WIDTH 12.6 % (11.7-14.4)
[2021-08-03 06:09] LABS: ALBUMIN 2.3 g/dL (3.5-5.0); ALBUMIN/GLOBULIN RATIO 0.8 (0.8-2.0); ANION GAP 10.6 mmol/L (8-16); CREATININE, SERUM 0.73 mg/dL (0.57-1.11); POTASSIUM 3.6 mmol/L (3.5-5.1)
[2021-08-03] MEDS: LEVOTHYROXINE SODIUM 75 MCG TAB PO SCH (08:00)
[2021-08-03] MEDS: DEXTROSE 5% 1,000 ML IV SCH ×2 (08:53→18:42)
[2021-08-03] MEDS: ASPIRIN 81 MG CHEW TAB PO SCH (09:00)
[2021-08-03] MEDS: CITALOPRAM HYDROBROMIDE 20 MG TAB PO SCH (09:00)
[2021-08-03] MEDS: FERROUS SULFATE 325 MG TAB PO SCH (09:00)
[2021-08-03 09:03] LABS: CHOL/HDL RATIO 3.5 (3.0-3.6)
[2021-08-03 12:40] VITALS: BP 107/65
[2021-08-03 12:56] VITALS: BP 107/65
[2021-08-03 13:05] VITALS: BP 107/65
[2021-08-03 15:20] LABS: FREE T4 (FREE THYROXINE) 0.8 ng/dL (0.8-1.8); THYROID STIMULATING HORMONE 8.876 uIU/mL (0.350-4.940)
[2021-08-03 17:01] VITALS: BP 135/93
[2021-08-03 19:25] VITALS: BP 140/65
[2021-08-03 21:25] VITALS: BP 140/65
[2021-08-04] VITALS (9 sets, daily range): BP systolic 110–146; BP diastolic 46–79
[2021-08-04] MEDS: PIPERACILLIN/TAZOBACTAM 3.375 GM in SODIUM CHLORIDE 0.9% 50ML 50 ML IV SCH ×4 (03:31→21:27)
[2021-08-04] MEDS: DEXTROSE 5% 1,000 ML IV SCH ×2 (03:31→14:15)
[2021-08-04] MEDS: LEVOTHYROXINE SODIUM 75 MCG TAB PO SCH (05:01)
[2021-08-04] MEDS: ASPIRIN 81 MG CHEW TAB PO SCH (09:00)
[2021-08-04] MEDS: CITALOPRAM HYDROBROMIDE 20 MG TAB PO SCH (09:00)
[2021-08-04] MEDS: FERROUS SULFATE 325 MG TAB PO SCH (09:00)
[2021-08-04] MEDS: INSULIN LISPRO 100 UNIT/1 ML 3ML VIAL SQ SCH ×2 (17:12→21:26)
[2021-08-04] MEDS: DEXTROSE 5%/0.45% SOD CHL 1,000 ML IV SCH (17:12)
[2021-08-04] MEDS ORDERED: INSULIN GLARGINE 100 UNITS/ML VIAL SQ SCH (21:00)
[2021-08-05 00:47] VITALS: BP 137/57
[2021-08-05] MEDS: DEXTROSE 5%/0.45% SOD CHL 1,000 ML IV SCH (03:07)
[2021-08-05] MEDS: PIPERACILLIN/TAZOBACTAM 3.375 GM in SODIUM CHLORIDE 0.9% 50ML 50 ML IV SCH ×4 (03:14→21:43)
[2021-08-05 04:00] VITALS: BP 136/59
[2021-08-05] MEDS: LEVOTHYROXINE SODIUM 100 MCG TAB PO SCH (05:04)
[2021-08-05] MEDS: LEVOTHYROXINE SODIUM 75 MCG TAB PO SCH (05:04)
[2021-08-05] MEDS ORDERED: LEVOTHYROXINE SODIUM 75 MCG TAB PO SCH (06:00)
[2021-08-05] MEDS: INSULIN LISPRO 100 UNIT/1 ML 3ML VIAL SQ SCH ×4 (07:30→20:22)
[2021-08-05 07:45] VITALS: BP 101/48
[2021-08-05 08:04] VITALS: BP 101/48
[2021-08-05] MEDS: CITALOPRAM HYDROBROMIDE 20 MG TAB PO SCH (11:48)
[2021-08-05] MEDS: FERROUS SULFATE 325 MG TAB PO SCH (11:48)
[2021-08-05] MEDS: ASPIRIN 81 MG CHEW TAB PO SCH (11:48)
[2021-08-05] MEDS ORDERED: POTASSIUM CHLORIDE 20 MEQ TAB CR PO ONE (14:30)
[2021-08-05 16:05] VITALS: BP 132/47
[2021-08-05 20:00] VITALS: BP 138/48
[2021-08-05] MEDS ORDERED: INSULIN GLARGINE 100 UNITS/ML VIAL SQ SCH (21:00)
[2021-08-06] VITALS: BP 150/54
[2021-08-06 04:00] VITALS: BP 150/50
[2021-08-06] MEDS: PIPERACILLIN/TAZOBACTAM 3.375 GM in SODIUM CHLORIDE 0.9% 50ML 50 ML IV SCH ×3 (04:17→16:48)
[2021-08-06] MEDS: LEVOTHYROXINE SODIUM 100 MCG TAB PO SCH (05:59)
[2021-08-06] MEDS: LEVOTHYROXINE SODIUM 75 MCG TAB PO SCH (05:59)
[2021-08-06] MEDS: INSULIN LISPRO 100 UNIT/1 ML 3ML VIAL SQ SCH ×2 (07:30→12:17)
[2021-08-06 07:51] VITALS: BP 157/54
[2021-08-06 08:00] VITALS: BP 157/54
[2021-08-06] MEDS: ASPIRIN 81 MG CHEW TAB PO SCH (10:05)
[2021-08-06] MEDS: FERROUS SULFATE 325 MG TAB PO SCH (10:05)
[2021-08-06] MEDS: CITALOPRAM HYDROBROMIDE 20 MG TAB PO SCH (10:05)
[2021-08-06] MEDS ORDERED: Insulin Glargine SQ (10:16)
[2021-08-06] MEDS ORDERED: SYNTHROID100 MCG PO (10:16)
[2021-08-06] MEDS ORDERED: SYNTHROID75 MCG PO (10:16)
[2021-08-06 12:13] VITALS: BP 135/70
[2021-08-06] MEDS ORDERED: LANTUS 3ML100 UNITS/ SQ (15:51)
[2021-08-06 16:24] VITALS: BP 153/67
[2021-08-06] MEDS ORDERED: INSULIN GLARGINE 100 UNITS/ML VIAL SQ SCH (21:00)
== END 2021-08-06 18:00 | disposition home or self-care (01) | DRG 637 ==
LOC: ER 19:35 → ERHOLD 21:04 → MED/SURG2 08-03 12:13 → OBSVTOIN 08-03 12:45 → MED/SURG2 08-03 22:21
PROVIDERS: ADMIT Internal Medicine; ATTEND Internal Medicine
DX: E11.649 Type 2 diabetes mellitus with hypoglycemia without coma (principal); G93.41 Metabolic encephalopathy; M62.82 Rhabdomyolysis; Z79.899 Other long term (current) drug therapy; E03.9 Hypothyroidism, unspecified; K21.9 Gastro-esophageal reflux disease without esophagitis; Z20.822 Contact with and (suspected) exposure to COVID-19; F03.90 Unspecified dementia, unspecified severity, without behavioral disturbance, psychotic disturbance, mood disturbance, and anxiety; Z79.4 Long term (current) use of insulin
CPT/HCPCS: 36415; 70450; 70496; 74230; 80053; 80061; 81001; 82140; 82550; 82553; 82947; 82948; 83036; 83605; 84439; 84443; 84484; 84681; 85025; 87040; 87086; 93005; 94799; 97139; 99251; 99283; G0378; J1610; J1815; J2543; J7030; J7050; J7070; J7799; Q9967; U0002